=== PATIENT | male | born 1950 | race Caucasian/White ===

== ENCOUNTER 2016-11-19 04:33 | Emergency (ER) | payer OTHER ==
--- NOTE | 2016-11-19 19:38 | ER ---
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 States he has had these episodes in the past. Most recently, post herniorrhaphy, while hospitalized. He states he became lightheaded, sat himself down. did hear a crash, reported to the bathroom, found him sitting on the floor, diaphoretic with his head between his knees, was delirious for few minutes, ultimately requiring ambulance to be called because of concern about delirium. Paramedics evaluated and allowed patient to be driven by private car to the Emergency Department. The patient denied any headache, head injury, neck pain, chest pain, shortness of breath, vomiting, diarrhea, or dysuria. The patient states he drinks plenty of water and his urine is clear. Exam remarkable for nontoxic, afebrile male with normal orthostatic blood pressures. Road tested well in department. Exam otherwise unremarkable. No further diagnostic tests were employed. Advised the patient to sit when he urinates in the future. Follow up with Dr. Jeronimo for ongoing medical care. Milton Wadsworth MD/ [place] JOB #: [id number] CC: Milton Wadsworth MD, Attending Physician Refugio Jeronimo MD, Family Physician Refugio Jeronimo MD
== END 2016-11-19 05:09 | disposition home or self-care (01) ==
LOC: ER 04:33
DX: R55 Syncope and collapse (principal); E11.9 Type 2 diabetes mellitus without complications; E78.5 Hyperlipidemia, unspecified; Z98.890 Other specified postprocedural states; Z79.899 Other long term (current) drug therapy